=== PATIENT | male | born 1945 | race Caucasian/White ===

== ENCOUNTER 2017-09-18 13:47 | Emergency (ER) | payer MEDICARE ==
[~2017-09-18] VITALS: Ht 172.7 cm; Wt 71.8 kg
[~2017-09-18 13:47] MED LIST: ALBUTERO1 IN; CEPHALEXIN500 MG PO; DALIRESP500 MCG PO; DUONEB IN; FOLIC ACID1 M1; KEPPRA1000 MG PO; MEDDOSEPAK PO; MEGACE40 MG PO; PREDNISONE10 MG PO; ROBITUSSIN AC10 ML PO; SINGULAIR10 MG PO; VENTOLIN HF1 IN
[2017-09-18] MEDS ORDERED: BACTRIM DS1 TAB PO (15:04)
[2017-09-18 15:08] VITALS: BP 118/78
== END 2017-09-18 15:10 | disposition home or self-care (01) ==
LOC: ED 13:47
PROC: 0HQLXZZ Repair Left Lower Leg Skin, External Approach (ICD-10-PCS; principal; 2017-09-18)
DX: S81.812A Laceration without foreign body, left lower leg, initial encounter (principal); W01.0XXA Fall on same level from slipping, tripping and stumbling without subsequent striking against object, initial encounter; Y92.89 Other specified places as the place of occurrence of the external cause

== ENCOUNTER 2017-09-20 09:13 | Emergency (ER) | payer MEDICARE ==
[~2017-09-20] VITALS: Ht 172.7 cm; Wt 71.8 kg
[~2017-09-20 09:13] MED LIST changes: +BACTRIM DS1 TAB PO
[2017-09-20 09:37] VITALS: BP 145/77
== END 2017-09-20 09:37 | disposition home or self-care (01) ==
LOC: ED 09:13
DX: S81.812D Laceration without foreign body, left lower leg, subsequent encounter (principal)